=== PATIENT | male | born 2000 | race Caucasian/White ===

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

== ENCOUNTER 2019-02-24 12:31 | Emergency (ER) | payer MEDICAID, SELFPAY ==
[2019-02-24 12:33] VITALS: BP 102/52; PULSE 82; RESP 14; TEMP 36.9; O2SAT 98
--- NOTE | 2019-02-24 12:44 | DI.RAD_ITS ---
SYMPTOM/DIAGNOSIS: RT WRIST PAIN RIGHT WRIST: No fracture or dislocation is seen. IMPRESSION: Negative right wrist.
--- NOTE | 2019-02-24 13:04 | ED.GENADUL_ITS ---
Discharge Plan Disposition Patient Disposition: HOME Condition: Good Discharge Details Chief Complaint: Orthopedic Clinical Impression: Fracture of right wrist Primary Care Provider: Huber Phan ED Provider: Lenin Fong Home Meds and New Rx's Prescriptions: No Action ranitidine HCl 75 mg tablet 75 mg PO BID PRN (Reason: indigestion) Qty: 30 RF: 0 Discharge Instructions Instructions: Wrist Fracture in Adults (ED) Additional Instructions: You have a questionably small fracture in your right wrist. Please keep the brace on at all times. He will be contacted by the military source operations specialist for follow-up. Please use ice, Tylenol, and Motrin for control of the pain. If you notice any worsening of your symptoms, or any new symptoms such as vomiting, diarrhea, fever, chills, shortness of breath, chest pain, numbness, weakness, or fainting , please return immediately to the emergency department for reevaluation. Please follow up with your primary care provider as soon as possible for reassessment and reevaluation. As always, it was a pleasure participating in your medical care today. Stand Alone Forms: Work Release Referrals: Huber Phan DO [Primary Care Provider] - Medical Decision Making This is a 18-year-old male with no significant past medical history who presents with right wrist pain. He is right-hand dominant. Pain is just proximal to the palmar crease on the wrist. Worsened with extension, not worsened with pronation or supination. No numbness or tingling, normal sens ation, normal capillary refill. Signs and symptoms are concerning for mild tendinopathy. We will get an x-ray to rule out acute fracture. 1:51 PM X-ray results have returned, on initial assessment there was no evidence of fracture, however on reassessment there does appear to be an atypical lucency on the triquetrum. I did contact Dr. Mccrary again, and she does agree that this is slightly atypical. Patient is in the wrist splint. Will recommend close follow-up with the military source operations specialist. We discussed red flags which return, the importance of rest, ice and NSAIDs. I have extensively reviewed the treatment plan and discharge instructions with the patient. I have addressed all patient concerns at this time. The patient was made aware of what symptoms to monitor for that would warrant a return to the emergency department. Discussed the plan with the patient, they demonstrate verbal understanding and agreement with our assessment and plan at this time. HPI General Date/Time Provider Initiated Documentation: 02/24/19 12:35 . HPI Narrative: This is a 18-year-old male no significant past medical history who presents today for right wrist pain. He is right-hand dominant. Patient states that this morning when he woke up it mild to moderate pain on the palmar aspect of his wrist the central component just proximal to the proximal palmar crease. Pain worse with flexion of the wrist. He denies any associated numbness or tingling. He denies any recent trauma or injury. He does work at [employer]. No other complaints at this time. Related Data Home Medications Medication Instructions Recorded Confirmed ranitidine HCl 75 mg PO BID PRN #30 tab 12/14/18 02/24/19 Previous Rx's Medication Instructions Recorded ranitidine HCl 75 mg PO BID PRN #30 tab 12/14/18 Allergies Allergy/AdvReac Type Severity Reaction Status Date / Time No Known Allergies Allergy Unverified 02/24/19 12:43 General Stated Complaint: Orthopedic REY: 4 Review of Systems Review of Systems All systems reviewed & are unremarkable except as noted in HPI and below PFSH Social History Smoking/Tobacco Use Status: Never Alcohol Intake: never Drug use: Never Substance use type: does not use Do you feel safe at home: Yes Do you feel safe in your relationship?: Yes Exam Narrative Exam Narrative: 1.Const: Well-nourished, Well-developed, appearing stated age 2.Eyes: PERRL, no conjunctival injection, and symmetrical lids. 3.ENT: Atraumatic external nose and ears. Moist MM. Neck: Symmetric, trachea midline, No thyromegaly. 4.CVS: +S1/S2, No murmurs or gallops. Peripheral pulses 2+ and equal in all extremities. Brisk capillary refill in all extremities. 5.RESP: Unlabored respiratory effort. Clear to auscultation bilaterally. No wheezes rales or rhonchi 6.GI: Soft, Nontender/Nondistended, No hepatosplenomegaly. No guarding or rebound. 7.MSK: Normocephalic/Atraumatic, Extremities w/o deformity or ttp No cyanosis or clubbing, Normal movement of all extremities. Right hand: Symmetrically palpable radial and ulnar pulses. Capillary refill less than 2 seconds to all digits. Intact sensation to light touch of the radial, median and ulnar nerves demonstrated by testing in the dorsal web space of the thumb, the distal palmar aspect of the index finger, and the lateral surface of the fifth finger. 2 point discrimination intact to 5mm (up to 6mm can be normal in digits 3-5) of discrimination in the affected digit. Intact motor function of the radial, median and ulnar nerves demonstrated by strength of extension of the isolated distal joint of the index finger, hand malt house supervisor, and spreading of the 2nd through 5th digits. Intact recurrent median nerve as demonstrated by ability to move thumb fully through opposition, abduction and flexion. No snuffbox tenderness. Mild tenderness over the carpal tunnel, worse with Phalen's test. No significant pain with pronation or supination. 8.Skin: Warm, Dry. No rashes or lesions. 9.Neuro: sail finisher hand II-XII grossly intact. Sensation grossly intact, no focal neurologic deficits. 10.Psych: (AAO) x3. Appropriate mood and affect Course Vital Signs Temperature 36.9 C 02/24/19 12:33 Pulse 82 02/24/19 12:33 Respiratory Rate 14 02/24/19 12:33 Blood Pressure 102/52 L 02/24/19 12:33 Pulse Oximetry 98 02/24/19 12:33 Temperature 36.9 C 02/24/19 12:33 Temperature Source Skin 02/24/19 12:33 Pulse 82 02/24/19 12:33 Respiratory Rate 14 02/24/19 12:33 Respiratory Effort 02/24/19 12:44 Blood Pressure 102/52 L 02/24/19 12:33 Blood Pressure Position Sitting 02/24/19 12:33 Pulse Oximetry 98 02/24/19 12:33 Oxygen Delivery Method Room Air 02/24/19 12:33 Oxygen Flow Rate 0 02/24/19 12:33 Pain Level 7 02/24/19 12:33
[2019-02-24 14:01] VITALS: BP 102/52; PULSE 82; RESP 14; TEMP 36.9; O2SAT 98
== END 2019-02-24 14:03 | disposition home or self-care (01) ==
PROVIDERS: Emergency Provider Student in an Organized Health Care Education/Training Program; PCP Family Medicine
DX: S62.114A Nondisplaced fracture of triquetrum [cuneiform] bone, right wrist, initial encounter for closed fracture (principal); X58.XXXA Exposure to other specified factors, initial encounter
CPT/HCPCS: 25630; 73110; L3908

== ENCOUNTER 2019-03-05 07:08 | Emergency (ER) | payer MEDICAID, SELFPAY ==
[2019-03-05 07:13] VITALS: BP 114/56; PULSE 80; RESP 16; TEMP 36.3; O2SAT 99
--- NOTE | 2019-03-05 07:31 | ED.GENADUL_ITS ---
Discharge Plan Disposition Patient Disposition: HOME Condition: Fair Discharge Details Chief Complaint: Nk/Back Pain Clinical Impression: Back pain Primary Care Provider: Huber Phan ED Provider: Angela Mota Home Meds and New Rx's Prescriptions: New diazepam [Valium] 5 mg tablet 5 mg PO TID PRN (Reason: muscle spasm) Qty: 10 RF: 0 Continued ranitidine HCl 75 mg tablet 75 mg PO BID PRN (Reason: indigestion) Qty: 30 RF: 0 Discharge Instructions Instructions: Back Pain (ED) Additional Instructions: Your x-rays are reassuring today. Please encourage hydration. Encourage gentle stretching and frequent movement. Tylenol and ibuprofen as needed for discomfort. He may augment this with the Valium as prescribed if you continue to have spasms. Do not drive while taking the Valium. Please keep this medication in a safe place. Referral for physical therapy is attached. You may find that heat or ice is beneficial to help with your discomfort. You may also try topical options such as Salonpas or Lidoderm patches. Please follow-up with primary care in 1 week if not improving. If you develop sensation changes, weakness, fevers, increased pain or other new/worsening symptoms please seek care urgently once again. Stand Alone Forms: Physical Therapy Referral Referrals: Huber Phan DO [Primary Care Provider] - Medical Decision Making <Robert Flor MD - Last Filed: 03/05/19 07:37> 18 yo male comes in with mid lower thoracic and upper lumbar pain. States it started about 1-2 hours ago while sitting eating cereal. Denies falls, trauma, fevers, ivdu, weakness. He localizes the pain over the lower thoracic spine mid line and upper lumbar spine both midline and right paraspinous. HAs no deficits in sensation and no wekakness on exam. He also states the pain is so bad that it hurts to take a deep breath. I do not feel this is likely a spinal cord issues such as sea or cauda equina based on hx and physical exam so do not feel mri indicated. Unlikely fx/dislocation but will xray to eval for possible transverse process fx and also cxr given he states it hurts to take a deep breath. IS wells low and perc negateive so doubt PE. Will try muscle relaxers as well Differential Diagnosis muscle spasm, fracture, dislocation <AMARA Garcia - Last Filed: 03/05/19 08:34> Care transition to myself with imaging pending. X-rays were reviewed by radiologist: XR chest FINDINGS: Lungs: Unremarkable. No consolidation. Pleural space: Unremarkable. No pleural effusion. No pneumothorax. Heart/Mediastinum: Unremarkable. No cardiomegaly. Bones/joints: Unremarkable. IMPRESSION: No evidence for acute pulmonary disease. XR thoracic spine: FINDINGS: Vertebrae: Vertebral body heights are intact. Alignment is maintained. The pedicles appear intact. No acute fracture is identified. The disc spaces appear grossly unremarkable. Soft tissues: The soft tissues appear grossly unremarkable. IMPRESSION: No significant abnormality. XR lumbar spine: FINDINGS: Vertebrae: Vertebral body heights are intact. Alignment is maintained. The pedicles appear intact. No acute fracture is identified. The disc spaces appear grossly unremarkable. Soft tissues: The soft tissues appear grossly unremarkable. IMPRESSION: No significant abnormality. Reassessed the patient, discussed the findings. He continues to endorse some discomfort, particular with movement. However, the patient is resting comfortably and sleeping throughout much of my discussion with him. I did routinely wake him up. In further evaluation discussion with girlfriend, he did not actually sleep at all last night. They have been awake throughout the night. This may have been associated with his discomfort. We discussed that this may be secondary to positional movement, being sedentary for long period time, overworking it yesterday. Again, Dr. Flor did not note any neurologic deficits. X-ray does not reveal any bony pathology and without any trauma at his age, very low suspicion for fracture, nerve pathology with no inciting incident. Feel the patient is safe for discharge. The patient and his significant other agree. We will continue with the muscle relaxer as this has helped with his discomfort. Will refer to physical therapy. Encourage breathing. Advised Tylenol and ibuprofen as needed for discomfort. We discussed new/worsening symptoms when to seek care urgently once again. Advise follow-up with primary care in 1 week if not improving. All the questions and concerns were addressed in agreement this plan. HPI <Robert Flor MD - Last Filed: 03/05/19 07:37> General Mode of arrival: ambulatory . Date/Time Provider Initiated Documentation: 03/05/19 07:27 . Limitations to Documentation: no limitations . Information obtained by: patient . History of Present Illness 18 year old M presents to the emergency department with the chief complaint of back pain, described as severe, Quality is described as aching, Patient started experiencing this hour(s) (2) and it has been constant. No relieving factors improve symptom(s), Patient did receive the following treatments prior to arrival, none Related Data Home Medications Medication Instructions Recorded Confirmed ranitidine HCl 75 mg PO BID PRN #30 tab 12/14/18 03/05/19 diazepam [Valium] 5 mg PO TID PRN #10 tab 03/05/19 Previous Rx's Medication Instructions Recorded ranitidine HCl 75 mg PO BID PRN #30 tab 12/14/18 diazepam [Valium] 5 mg PO TID PRN #10 tab 03/05/19 Allergies Allergy/AdvReac Type Severity Reaction Status Date / Time No Known Allergies Allergy Unverified 03/05/19 07:15 General Stated Complaint: Nk/Back Pain REY: 4 Review of Systems <Robert Flor MD - Last Filed: 03/05/19 07:37> Review of Systems All systems reviewed & are unremarkable except as noted in HPI and below Constitutional Denies chills, Denies fever(s) and Denies weakness Cardiovascular Denies chest pain Gastrointestinal Denies abdominal pain, Denies nausea and Denies vomiting Neurologic Denies weakness Endocrine Denies heat intolerance PFSH <Robert Flor MD - Last Filed: 03/05/19 07:37> Social History Smoking/Tobacco Use Status: Never Alcohol Intake: never Drug use: Never Substance use type: does not use Do you feel safe at home: Yes Do you feel safe in your relationship?: Yes Exam <Robert Flor MD - Last Filed: 03/05/19 07:37> Const General: no acute distress Orientation: alert HENMT Head: normal to inspection Ears: external ears normal General nose exam: external nose normal Mouth: moist mucous membranes Eyes General: appearance normal, both eyes and all related structures Neck Neck: normal visual inspection Resp Effort & Inspection: normal respiratory effort and able to speak in complete sentences Cardio Rate: regular rate Back/Spine/Pelvis Back: no CVA tenderness Skin General skin exam: no rashes or lesions noted Neuro General: alert and oriented x3 Extrem General: normal to inspection Psych Mental Status: mental status grossly normal Course <Robert Flor MD - Last Filed: 03/05/19 07:37> Vital Signs Temperature 36.3 C L 03/05/19 07:13 Pulse 80 03/05/19 07:13 Respiratory Rate 16 03/05/19 07:13 Blood Pressure 114/56 L 03/05/19 07:13 Pulse Oximetry 99 03/05/19 07:13 Temperature 36.3 C L 03/05/19 07:13 Temperature Source Skin 03/05/19 07:13 Pulse 80 03/05/19 07:13 Respiratory Rate 16 03/05/19 07:13 Respiratory Effort Non-Labored 03/05/19 07:13 Blood Pressure 114/56 L 03/05/19 07:13 Pulse Oximetry 99 03/05/19 07:13 Oxygen Delivery Method Room Air 03/05/19 07:13 Oxygen Flow Rate 0 03/05/19 07:13 Pain Level 10 03/05/19 07:13 Sign Out <Robert Flor MD - Last Filed: 03/05/19 07:37> Sign Out Data: Sign Out Comment: follow up on imaging and response to medications Last updated by Robert Flor MD at 03/05/19 07:56
[2019-03-05] MEDS: Ibuprofen 600 MG TAB PO (07:40)
[2019-03-05] MEDS: diazePAM 5 MG TAB PO (07:40)
--- NOTE | 2019-03-05 07:56 | DI.RAD_ITS ---
SYMPTOM/DIAGNOSIS: HURTS TO TAKE DEEP BREATH, PAIN, S/P CRACKING HIS BACK THORACIC SPINE: Three views were obtained. No fracture is seen. LUMBOSACRAL SPINE: Two views were obtained. No fracture is seen. Intervertebral disc spaces are well maintained. PA AND LATERAL CHEST: The heart is normal in size. The lungs are clear. The mediastinal structures and pleura appear intact. CONCLUSION: Normal chest.
--- NOTE | 2019-03-05 08:19 | DI.VRAD_ITS ---
EXAM: XR Thoracic Spine, 3 Views EXAM DATE/TIME: 03/05/2019 7:32 AM CLINICAL HISTORY: 18 years old, male; Pain in thoracic spine; Patient HX: Pain S/P cracking his back TECHNIQUE: Imaging protocol: XR of the thoracic spine, 3 views. COMPARISON: No relevant prior studies available. FINDINGS: Vertebrae: Vertebral body heights are intact. Alignment is maintained. The pedicles appear intact. No acute fracture is identified. The disc spaces appear grossly unremarkable. Soft tissues: The soft tissues appear grossly unremarkable. IMPRESSION: No significant abnormality. Dictated and Authenticated by: Robert Osman MD. Ordering:MADAI Jones MD
--- NOTE | 2019-03-05 08:19 | DI.VRAD_ITS ---
EXAM: XR Chest, 2 Views EXAM DATE/TIME: 03/05/2019 7:32 AM CLINICAL HISTORY: 18 years old, male; Chest pain; Patient HX: Hurts to take deep breaths TECHNIQUE: Imaging protocol: XR of the chest Views: 2 views. COMPARISON: No relevant prior studies available. FINDINGS: Lungs: Unremarkable. No consolidation. Pleural space: Unremarkable. No pleural effusion. No pneumothorax. Heart/Mediastinum: Unremarkable. No cardiomegaly. Bones/joints: Unremarkable. IMPRESSION: No evidence for acute pulmonary disease. Dictated and Authenticated by: Robert Osman MD. Ordering:MADAI Jones MD
--- NOTE | 2019-03-05 08:20 | DI.VRAD_ITS ---
EXAM: XR Lumbosacral Spine, 2 or 3 Views EXAM DATE/TIME: 03/05/2019 7:46 AM CLINICAL HISTORY: 18 years old, male; Low back pain; Patient HX: Pain S/P cracking his back TECHNIQUE: Imaging protocol: XR of the lumbosacral spine, 2 or 3 views. COMPARISON: No relevant prior studies available. FINDINGS: Vertebrae: Vertebral body heights are intact. Alignment is maintained. The pedicles appear intact. No acute fracture is identified. The disc spaces appear grossly unremarkable. Soft tissues: The soft tissues appear grossly unremarkable. IMPRESSION: No significant abnormality. Dictated and Authenticated by: Robert Osman MD. Ordering:MADAI Jones MD
== END 2019-03-05 09:00 | disposition home or self-care (01) ==
PROVIDERS: Emergency Provider Physician Assistant; PCP Family Medicine
DX: M54.6 Pain in thoracic spine (principal); M54.5 Low back pain
CPT/HCPCS: 99284; 71046; 72072; 72100

== ENCOUNTER 2019-05-15 17:17 | Emergency (ER) | payer MEDICAID, SELFPAY ==
[2019-05-15 17:19] VITALS: BP 125/75; PULSE 96; RESP 16; TEMP 36.7; O2SAT 99
--- NOTE | 2019-05-15 18:48 | NUR.NOTE ---
Nursing Note: Patient instructed on urine collection. States he needs some water to drink before he can pee. Glass of water provided.
--- NOTE | 2019-05-15 18:49 | W.ED.GENAD ---
Discharge Plan Disposition Patient Disposition: HOME Discharge Details Chief Complaint: RashLesion Clinical Impression: Genital lesion, male, Inguinal lymphadenopathy Primary Care Provider: Huber Phan ED Provider: Cuauhtemoc Fisher Home Meds and New Rx's Prescriptions: New acyclovir 400 mg tablet 400 mg PO QID 10 Days Qty: 40 RF: 0 Discharge Instructions Instructions: Genital Herpes Simplex (ED) Additional Instructions: Your symptoms are concerning for genital herpes. It is very important that you refrain from sexual intercourse while symptoms persist. Symptoms will usually resolve over the next 2 to 3 weeks. You may experience fever and/or worsening genital lesions. Keep area clean. We have sent out a panel of STD testing which we will contact you with results. I also started you on a medication, acyclovir, for which she should take over the next 10 days. This will help reduce the severity of your symptoms. Referrals: Huber Phan DO [Primary Care Provider] - 5 days Medical Decision Making This is a nontoxic-appearing 18-year-old male presenting to the emergency department with symptoms concerning for genital herpes. He has a shallow ulceration along the tip of the glans along with associated tender bilateral inguinal lymphadenopathy. Direct swab sampling sent along with HSV 1 and 2 PCR, syphilis, HIV and GC chlamydia. The patient is sexually active and notified his girlfriend who was also present in the emergency department that his symptoms are concerning for herpes. Plan is to initiate acyclovir and follow-up with his blood/culture results. HPI General Date/Time Provider Initiated Documentation: 05/15/19 17:27. HPI Narrative: Patient is a 18-year-old sexually active male who presents to the emergency department with a small round painful lesion located at the tip of his penis. He states that his symptoms started today. He describes the lesion as tender. It has the appearance of an ulcer. He denies any fevers or chills. He idenies previous similar symptoms in the past. He is sexually active with his girlfriend engaging in unprotected intercourse. He denies any urethral discharge. No scrotal tenderness. No abdominal pain. Related Data Home Medications Medication Instructions Recorded Confirmed acyclovir 400 mg PO QID 10 Days #40 tab 05/15/19 Previous Rx's Medication Instructions Recorded acyclovir 400 mg PO QID 10 Days #40 tab 05/15/19 Allergies Allergy/AdvReac Type Severity Reaction Status Date / Time No Known Allergies Allergy Unverified 05/15/19 17:24 General Stated Complaint: RashLesion REY: 4 Review of Systems Constitutional Constitutional: Denies chills, Denies fatigue, Denies fever(s), Denies malaise and Denies night sweats ENT Ears, Nose, Mouth, and Throat: Denies odynophagia Gastrointestinal Gastrointestinal: Denies abdominal pain, Denies change in stool character, Denies nausea and Denies odynophagia Genitourinary Genitourinary: Denies hematuria, Denies difficulty urinating, Reports genital lesions, Reports genital pain, Denies dysuria, Denies flank pain, Denies nocturia, Denies painful ejaculations, Denies penile discharge, Denies scrotal swelling, Denies testicular mass, Denies testicular pain, Denies urinary frequency and Denies urinary urgency Musculoskeletal Musculoskeletal: Denies myalgias, Denies arthralgias and Denies joint swelling Integumentary/Breasts Skin/Breast: Denies rash Endocrine Endocrine: Denies fatigue [facility] Social History Smoking/Tobacco Use Status: Never Alcohol Intake: never Drug use: Never Substance use type: does not use Do you feel safe at home: Yes Exam Const General: cooperative, healthy appearing and comfortable Nutritional Appearance: average body habitus Orientation: alert, awake and oriented x3 Resp Effort & Inspection: normal respiratory effort and able to speak in complete sentences GI Inspection: normal to inspection Palpation: soft Penis: ulceration Other: Shallow painful ulceration located along the tip of the glans just lateral to the urethra. Surrounding erythema is with granulation tissue at its base. No discharge. Bilateral tender inguinal lymphadenopathy noted. No scrotal tenderness. No other areas of lesions or rashes. No urethral discharge Course Vital Signs Vital signs: Vital Signs Temperature 36.7 C 05/15/19 17:19 Pulse 96 H 05/15/19 17:19 Respiratory Rate 16 05/15/19 17:19 Blood Pressure 125/75 05/15/19 17:19 Pulse Oximetry 99 05/15/19 17:19 Temperature 36.7 C 05/15/19 17:19 Temperature Source Skin 05/15/19 17:19 Pulse 96 H 05/15/19 17:19 Respiratory Rate 16 05/15/19 17:19 Respiratory Effort Non-Labored 05/15/19 17:23 Blood Pressure 125/75 05/15/19 17:19 Blood Pressure Position Sitting 05/15/19 17:19 Pulse Oximetry 99 05/15/19 17:19 Oxygen Delivery Method Room Air 05/15/19 17:19 Oxygen Flow Rate 0 05/15/19 17:19 Pain Level 10 05/15/19 17:19 Lab/Test Results Lab/Test Results: 05/15/19 17:44 Penile Skin Culture - Pending
--- NOTE | 2019-05-15 19:02 | NUR.NOTE ---
Nursing Note: 1900: In to collect urine specimen. Pt had filled urine cup after being told to fill to below label only. Patient informed this was to much urine and would need to recollect in one hour. Provider informed. He will now do swab on pt.
--- NOTE | 2019-05-15 19:11 | NUR.NOTE ---
Nursing Note: [id number] Provider in to collect swab. Sent to lab.
[2019-05-17 11:24] LABS: HIV-1/2 Ag & Ab Screen Negative (Negative)
[2019-05-17 11:52] LABS: Syphilis Serology (RPR) Negative (Negative)
[2019-05-17 12:11] LABS: HSV 1 DNA Result Negative (Negative)
[2019-05-17 13:59] LABS: Chlamydia Result Negative (Negative)
[2019-05-17 14:56] LABS: GC Result Negative (Negative)
[2019-05-17 14:58] LABS: HSV 2 DNA Result Positive (Negative)
[2019-05-17 19:12] LABS: HSV 1 PCR, Blood Negative (Negative); HSV 2 PCR, Blood Negative (Negative)
== END 2019-05-15 19:39 | disposition home or self-care (01) ==
PROVIDERS: Emergency Provider Physician Assistant; PCP Family Medicine
DX: N50.9 Disorder of male genital organs, unspecified (principal); L04.9 Acute lymphadenitis, unspecified
CPT/HCPCS: 36415; 87389; 87491; 87529; 87591; 99283; 86592; 87070

== ENCOUNTER 2019-05-16 20:01 | Emergency (ER) | payer MEDICAID, SELFPAY ==
[2019-05-16 20:11] VITALS: BP 108/77; PULSE 96; RESP 16; TEMP 36.1; O2SAT 100
--- NOTE | 2019-05-16 20:31 | NUR.NOTE ---
Nursing Note: Patient staff attorney came back to room.
--- NOTE | 2019-05-16 20:34 | DI.RAD_ITS ---
EXAM: XR ANKLE LT COMPLETE INDICATION: trauma. COMPARISON: XR FOOT LT COMPLETE from 05/16/2019 TECHNIQUE: 2D digital imaging was performed. FINDINGS: No fracture is seen in the ankle or foot. No ankle mortise widening is seen. No talar dome defec t is seen. IMPRESSION: Negative left ankle and left foot.
--- NOTE | 2019-05-16 20:35 | NUR.NOTE ---
Nursing Note: Specialist [employer] was asked to leave room by ADEEL Miller.
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
[2019-05-16] MEDS: Ibuprofen 600 MG TAB PO (20:45)
[2019-05-16] MEDS: Acetaminophen 500 MG TAB 1000 MG PO (20:45)
--- NOTE | 2019-05-16 20:45 | NUR.NOTE ---
Nursing Note: To radiology per wheelchair.
--- NOTE | 2019-05-16 20:59 | NUR.NOTE ---
Nursing Note: Patient returned from radiology per wheelchair,
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
== END 2019-05-16 21:30 | disposition home or self-care (01) ==
PROVIDERS: Emergency Provider Physician Assistant; PCP Family Medicine
DX: S90.32XA Contusion of left foot, initial encounter (principal); S90.02XA Contusion of left ankle, initial encounter; V03.10XA Pedestrian on foot injured in collision with car, pick-up truck or van in traffic accident, initial encounter
CPT/HCPCS: 29515; 99284; 73610; 73630; 99282; L4350

== ENCOUNTER 2019-05-27 15:24 | Emergency (ER) | payer MEDICAID, SELFPAY ==
[2019-05-27 15:28] VITALS: BP 130/87; PULSE 88; RESP 16; TEMP 37; O2SAT 98
--- NOTE | 2019-05-27 15:32 | W.ED.GENAD ---
Discharge Plan Disposition Patient Disposition: HOME Condition: Stable Discharge Details Chief Complaint: Urinary Clinical Impression: Exposure to STD Primary Care Provider: Huber Phan ED Provider: Leslie Orozco Discharge Instructions Instructions: Sexually Transmitted Diseases (ED) Additional Instructions: Be sure to refrain from intercourse while you are partner still has symptoms of infection. You can follow-up with your primary care doctor or [facility] for repeat STD testing if desired. Return to the emergency department if you develop any worsening or new concerning symptoms. 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 Patient was seen here 12 days ago for painful penile ulcers and had STD work-up at that time. He had a new sexual partner with unprotected sexual intercourse around that time. He was treated presumptively with acyclovir and had herpes testing at that time. He ultimately tested positive for herpes simplex II and tested negative for chlamydia and gonorrhea at that time. His girlfriend was in the ED at the same time and had no or urinary symptoms at that time but was tested preemptively. Her STD work-up was positive for chlamydia but negative for gonorrhea and herpes. She was notified of this positive result over the phone and was advised that any sexual partners be treated. This phone call was 10 days ago and he presents today stating I am here to be cured. He denies any fever, abdominal pain, urinary symptoms, penile discharge or lesions. He states he finished his acyclovir recently. As patient was tested for chlamydia and negative and has no symptoms, do not see indication for treatment of chlamydia at this time and patient is agreeable. He is advised to follow-up with a primary care doctor or [facility] for further evaluation or repeat STD testing if indicated. He is advised to return here with any concerns. Medical Records Medical records reviewed: Yes I reviewed the patient's medical records. HPI General Mode of arrival: ambulatory. Date/Time Provider Initiated Documentation: 05/27/19 15:32. Limitations to Documentation: no limitations. Information obtained by: patient. HPI Narrative: Patient is a 18-year-old male who was recently diagnosed with herpes simplex to and treated with acyclovir which he finished yesterday presents for treatment for chlamydia as his partner recently tested positive. Patient denies any fever, abdominal pain, urinary symptoms or penile discharge. He states he is feeling fine but was told by his girlfriend to come here for treatment as she tested positive recently for chlamydia. Patient denies any other new sexual exposures. Related Data Allergies Allergy/AdvReac Type Severity Reaction Status Date / Time No Known Allergies Allergy Unverified 05/27/19 15:32 General Stated Complaint: Urinary REY: 5 Review of Systems All systems reviewed & are unremarkable except as noted in HPI and below Constitutional Constitutional: Reports as per HPI, Denies chills and Denies fever(s) Eyes Eyes: Denies blurry vision ENT Ears, Nose, Mouth, and Throat: Denies dizziness, Denies sore throat and Denies throat swelling Cardiovascular Cardiovascular: Denies chest pain and Denies dyspnea Respiratory Respiratory: Denies cough and Denies dyspnea Gastrointestinal Gastrointestinal: Denies abdominal pain, Denies diarrhea and Denies vomiting Genitourinary Genitourinary: Denies hematuria and Denies dysuria Musculoskeletal Musculoskeletal: Denies back pain and Denies numbness Integumentary/Breasts Skin/Breast: Denies lesions and Denies rash Neurologic Neurologic: Denies dizziness, Denies focal weakness and Denies numbness Allergic/Immunologic Allergic/Immunologic: Denies throat swelling [facility] Medical History No significant past medical history (Acute) Surgical History History of ear surgery (Acute) Social History Smoking/Tobacco Use Status: Never Alcohol Intake: never Drug use: Never Substance use type: does not use Do you feel safe at home: Yes Do you feel safe in your relationship?: Yes Exam Const General: cooperative, healthy appearing and no acute distress HENMT Head: normal to inspection Face and sinus: normal facial exam Eyes General: appearance normal, both eyes and all related structures EOM: EOM intact bilaterally Neck Neck: normal visual inspection and No submandibular swelling Lymphatic: no lymphadenopathy noted Chest Chest: normal inspection of the chest and no tenderness Resp Effort & Inspection: normal respiratory effort and able to speak in complete sentences Auscultation: clear to auscultation bilaterally Cardio Rate: regular rate Rhythm: regular rhythm GI Inspection: normal to inspection Palpation: soft, not firm, not rigid and nontender Auscultation: normal bowel sounds Skin General skin exam: no rashes or lesions noted Neuro General: alert, awake and oriented x3 Cognition: normal cognition Speech: speech normal Motor: muscle tone normal throughout Sensory Exam: no sensory deficits noted Extrem General: normal to inspection, full ROM, normal capillary refill, no calf tenderness bilaterally and no edema Psych Appearance: grossly normal Mental Status: mental status grossly normal Speech and Movement: speech and movement normal Affect: normal affect Course Vital Signs Vital signs: Vital Signs Temperature 98.6 F 05/27/19 15:28 Pulse 88 05/27/19 15:28 Respiratory Rate 16 05/27/19 15:28 Blood Pressure 130/87 05/27/19 15:28 Pulse Oximetry 98 05/27/19 15:28 Temperature 98.6 F 05/27/19 15:28 Temperature Source Temporal Artery Scan 05/27/19 15:28 Pulse 88 05/27/19 15:28 Respiratory Rate 16 05/27/19 15:28 Respiratory Effort Non-Labored 05/27/19 15:31 Blood Pressure 130/87 05/27/19 15:28 Blood Pressure Position Sitting 05/27/19 15:28 Pulse Oximetry 98 05/27/19 15:28 Oxygen Delivery Method Room Air 05/27/19 15:28 Oxygen Flow Rate 0 05/27/19 15:28
== END 2019-05-27 16:20 | disposition home or self-care (01) ==
PROVIDERS: Emergency Provider Physician Assistant; PCP Family Medicine
DX: Z20.2 Contact with and (suspected) exposure to infections with a predominantly sexual mode of transmission (principal)
CPT/HCPCS: 99282

== ENCOUNTER 2019-08-07 12:29 | Emergency (ER) | payer MEDICAID, SELFPAY ==
[2019-08-07 12:35] VITALS: BP 110/72; PULSE 91; TEMP 36.5; O2SAT 96
--- NOTE | 2019-08-07 13:47 | ED.GENADUL_ITS ---
Discharge Plan Disposition Patient Disposition: HOME Condition: Stable Discharge Details Chief Complaint: RashLesion Clinical Impression: Cellulitis, Abscess Primary Care Provider: Unknown,Unknown ED Provider: Emilia Torres Home Meds and New Rx's Prescriptions: New cephalexin [Keflex] 500 mg capsule 500 mg PO QID Qty: 39 RF: 0 Continued valacyclovir 500 mg Tablet 500 mg PO DAILY RF: 0 Discharge Instructions Instructions: Cephalexin (By mouth), Cellulitis (ED), Abscess (ED) Additional Instructions: Please return immediately to the emergency department if you develop any new or worsening symptoms, if your condition does not improve as expected, or if you become otherwise concerned. It is extremely important that you call soon as possible to make an appointment to be seen in follow-up for this visit by your primary care doctor. Discharge Data Discharge Date/Time-TO BE ENTERED AT DEPARTURE: 08/07/19 14:18 Medical Decision Making Mannie Mary is a 19 y/o man without reported h/o major medical problems who presented to the emergency department with left buttock abscess for the past 2 weeks, worse in the past 2 days. Pt is very well and non-toxic appearing on exam with 2x3 cm area of erythema/induration with central ulceration c/w cellulitis, draining abscess. POCUS shows tissue edema without fluid collection. Plan to treat with keflex, no I&D indicated at this time. Exam/hx not c/w systemic infection, fistula, necrotizing fasciitis, atypical infection, other acute emergent life threatening process. I had a lengthy discussion with Patient regarding return to emergency department precautions, home care, and importance of outpatient follow-up. Pt verbalizes understanding of the plan and is amenable. Patient discharged to home with clear plan for outpatient follow-up. All questions were answered. Disposition decision was made weighing the risks and benefits of hospitalization versus outpatient treatment, the risk for further decompensation, and the patient's wishes. Medical Records Medical records reviewed: Yes I reviewed the patient's medical records. HPI General Mode of arrival: ambulatory . Date/Time Provider Initiated Documentation: 08/07/19 12:46 . Limitations to Documentation: no limitations . Information obtained by: patient, RN notes reviewed and old records reviewed . HPI Narrative: Mannie Mary is a 19 y/o man without reported h/o medical problems presenting to the emergency department with abscess. Pt reports that he has had a pimple on his left buttock for past 2 weeks. He reports that he has squeezed at home with return of discharge. Pt reports that area seems to be increasing in size since yesterday. He reports that there is continued small amount of daily discharge from area. He reports that he does not have a h/o abscesses. He denies any other pain or symptoms: no fever, SOB, cough, vomiting, diarrhea, rash. Feels otherwise very well and in his usual state of health. He denies trauma. Related Data Home Medications Medication Instructions Recorded Confirmed cephalexin [Keflex] 500 mg PO QID #39 cap 08/07/19 valacyclovir 500 mg PO DAILY 08/07/19 08/07/19 Previous Rx's Medication Instructions Recorded cephalexin [Keflex] 500 mg PO QID #39 cap 08/07/19 Allergies Allergy/AdvReac Type Severity Reaction Status Date / Time No Known Allergies Allergy Unverified 08/07/19 12:38 General Stated Complaint: RashLesion REY: 3 Review of Systems Narrative: Constitutional: denies fevers Eyes: denies eye pain ENT: denies ear pain, dental pain, sore throat Cardiovascular: denies chest pain Respiratory: denies SOB, cough GI: denies abdominal pain, vomiting, diarrhea : denies flank pain MSK: denies back pain, neck pain, arthralgias, myalgias Skin: denies rash, reports pimple/abscess to left buttock Neuro: denies headaches, numbness, weakness PFSH Social History Smoking/Tobacco Use Status: Never Alcohol Intake: never Drug use: Never Substance use type: does not use Do you feel safe at home: Yes Do you feel safe in your relationship?: Yes Exam Narrative Exam Narrative: Constitutional: well and [id number], pleasant, conversing normally HENT: head atraumatic/normocephalic/normal inspection, mucous membranes moist Eyes: conjunctiva normal, sclera normal, pupils 3mm b/l Neck: no stridor, normal ROM, trachea midline Resp: normal work of breathing Cardio: normal rate, normal rhythm Back: normal inspection, no rash Skin: warm, dry, normal color, left lateral/posterior buttock with 2x3cm area of erythema and induration mildly TTP with central ulceration with scant purulent drainage, no fluctuance, no crepitus, no other rash Neuro: alert, not altered, grossly non-focal, normal tone Ext: no edema Psych: normal mood, normal affect, normal behavior Course Vital Signs Vital signs: Vital Signs Temperature 36.5 C 08/07/19 12:35 Pulse 91 H 08/07/19 12:35 Blood Pressure 110/72 08/07/19 12:35 Pulse Oximetry 96 08/07/19 12:35 Temperature 36.5 C 08/07/19 12:35 Pulse 91 H 08/07/19 12:35 Blood Pressure 110/72 08/07/19 12:35 Blood Pressure Position Sitting 08/07/19 12:35 Pulse Oximetry 96 08/07/19 12:35 Oxygen Delivery Method Room Air 08/07/19 12:35 Oxygen Flow Rate 0 08/07/19 12:35 Pain Level 6 08/07/19 12:35
[2019-08-07] MEDS: Cephalexin 500 MG CAP PO (14:16)
== END 2019-08-07 14:18 | disposition home or self-care (01) ==
PROVIDERS: Emergency Provider Student in an Organized Health Care Education/Training Program
DX: L03.317 Cellulitis of buttock (principal); L02.31 Cutaneous abscess of buttock
CPT/HCPCS: 99283

== ENCOUNTER 2025-06-03 13:31 | Observation (INO) | payer SELFPAY ==
[2025-06-03] VITALS (7 sets, daily range): BP systolic 107–131; BP diastolic 60–76; PULSE 66–78; RESP 12–18; TEMP 35.9–37; O2SAT 96–100
--- NOTE | 2025-06-03 13:45 | DI.CT_ITS ---
Exam(s) CT ABDOMEN PELVIS W EXAM: CT ABDOMEN PELVIS W CLINICAL HISTORY: RLQ abd pain. TECHNIQUE: Imaging Protocol: Axial computed tomography images with coronal and sagittal reformatted images were created and reviewed CONTRAST MATERIAL: Intravenous: Omnipaque-350 75cc Oral: None COMPARISON: No exams were available for comparison FINDINGS: VISUALIZED LUNG BASES: No nodules nor pleural effusions evident. ABDOMEN: There is no ascites. LIVER: There are no focal hepatic lesions evident. No dilated intrahepatic ducts. GALLBLADDER/BILIARY: No obvious gallbladder pathology. CBD is not dilated. PANCREAS: No evidence of pancreatic mass nor dilatation of the pancreatic duct. SPLEEN: Spleen is not enlarged. No obvious intrasplenic lesions. Splenic and portal veins are patent. ADRENALS: There are no significant adrenal masses. KIDNEYS:No cysts evident. No solid renal masses. No calculi nor hydronephrosis.. ABDOMINAL AORTA: Abdominal aorta is not enlarged. LYMPH NODES:There is no retroperitoneal nor paraaortic adenopathy. ABDOMINAL WALL: No evidence of significant anterior abdominal wall nor inguinal hernia. GI: There are some fluid filled small bowel loops in the pelvis which exhibit upper normal diameters. No obvious struck in, free air, nor abscess PELVIS: GI: The appendix is difficult to identify is a distinct structure. There are no obvious secondary signs of acute appendicitis.No evidence of sigmoid diverticulitis. LYMPH NODES: There is no intrapelvic nor inguinal adenopathy. REPRODUCTIVE: Prostate size normal. Seminal vesicles unremarkable. URINARY BLADDER: No calculi nor obvious masses evident OSSEOUS: No fractures and no significant osseous lesions. Sacroiliac joints appear unremarkable. IMPRESSION: 1. The appendix is difficult to identify as a distinct separate structure. There is no obvious acute appendicitis. There are fluid-filled upper normal diameter small bowel loops in the pelvis. No evidence of obvious acute appendicitis. 2. 3. 4. RADIATION DOSE DELIVERED: 269.33mGy.cm Total DLP DATA REPOSITORY: All CT scans at this facility are submitted to the National Radiology Data Registry (NRDR) Dose Index Registry (DIR) with the [employer] (A[employer]). RADIATION OPTIMIZATION: All CT scans at this facility use at least one of these dose optimization techniques: automated exposure control; mA and/or kV adjustment per patient size (includes targeted exams where dose is matched to clinical indication); or iterative reconstruction.
--- NOTE | 2025-06-03 14:00 | ED.GENADUL_ITS ---
Discharge Plan Disposition Patient Disposition: Admit to [facility] Condition: Stable Discharge Details Clinical Impression: Abdominal pain of unknown etiology Primary Care Provider: Unknown,Unknown ED Provider: Yuliya Mei Home Meds and New Rx's Prescriptions: No Action valacyclovir 500 mg Tablet 500 mg PO DAILY cephalexin [Keflex] 500 mg capsule 500 mg PO QID Qty: 39 0RF HPI General Mode of arrival: ambulatory . Date/Time Provider Initiated Documentation: 06/03/25 13:47 . Limitations to Documentation: no limitations . Information obtained by: patient, family and old records reviewed . HPI Narrative: This is a 24-year-old male patient, previously healthy presenting for evaluation of right lower quadrant abdominal pain with nausea and vomiting. Yesterday the patient had nausea and several episodes of nonbloody emesis, today started to have a gradually worsening pain in his right lower quadrant that radiates around his side to his back. He states that he has not had fevers or chills, has some ongoing nausea, took some Motrin at home without improvement in his pain. The pain feels better when he grows up in a ball. He has not had any dysuria or hematuria, last stool was yesterday and he does feel slightly constipated. He endorses occasional blood on the toilet tissue when he wipes and is concerned for a hemorrhoid. Related Data Home Medications ?Medication ?Instructions ?Recorded ?Confirmed cephalexin 500 mg capsule (Keflex) 500 mg PO QID #39 c aps 08/07/19 06/03/25 valacyclovir 500 mg tablet 500 mg PO DAILY 08/07/19 Previous Rx's ?Medication ?Instructions ?Recorded cephalexin 500 mg capsule (Keflex) 500 mg PO QID #39 c aps 08/07/19 Allergies Allergy/AdvReac Type Severity Reaction Status Date / Time No Known Allergies Allergy Unverified 06/03/25 13:42 General Stated Complaint: Abd Prob REY: 3 Exam Narrative Exam Narrative: Gen: Awake and alert, in no apparent distress HEENT: Non-icteric sclera Neck: Supple Lungs: No apparent respiratory distress, normal respiratory effort. Lung sounds clear and equal bilaterally without wheezes, rhonchi, rales CV: Appears well perfused, heart with regular rate and rhythm, strong distal pulses Abdomen: Non-distended, soft, tender to palpation in the right lower quadrant without rigidity, but does have some rebound tenderness and guarding. Rovsing sign negative, no overlying skin changes Rectal: Rectal examination supervised by LENNOX Murphy, revealing a small nonthrombosed external hemorrhoid at the 3 o'clock position, no other fissures or external abnormalities visualized MSK: Moves 4 extremities without apparent limitation in ROM. No peripheral e robert Skin: Visualized skin without rashes, cyanosis. Neuro: Normal Gait, no obvious focal deficits or facial asymmetry. Speaks in full, clear sentences. Psych: Appropriate for situation. Course Vital Signs Vital signs: Vital Signs Temperature 37.0 C 06/03/25 13:36 Pulse 78 06/03/25 13:36 Respiratory Rate 16 06/03/25 13:36 Blood Pressure 107/67 06/03/25 13:36 Pulse Oximetry 96 06/03/25 13:36 Temperature 37.0 C 06/03/25 13:36 Temperature Source Oral 06/03/25 13:36 Pulse 78 06/03/25 13:36 Respiratory Rate 16 06/03/25 13:36 Blood Pressure 107/67 06/03/25 13:36 Pulse Oximetry 96 06/03/25 13:36 Oxygen Delivery Method Room Air 06/03/25 13:36 Oxygen Flow Rate 0 06/03/25 13:36 Pain Level 10 06/03/25 13:36 Medical Decision Making This is a 24-year-old male patient presenting for evaluation of right lower quadrant abdominal pain with nausea and vomiting. My differential includes, but is not limited to, appendicitis, gastritis/PUD, gastroenteritis, pancreatitis, cholecystitis and gallbladder pathology, hepatitis, diverticulitis, small bowel obstruction. Considered urinary pathology including UTI, nephrolithiasis. Considered mesenteric ischemia, aortic pathology, though this is less concerning based on the patient's history and physical exam. The external hemorrhoid is nonthrombosed and is unlikely to be contributing to the patient's nausea and abdominal pain today. We will obtain labs to include CBC, CMP, magnesium, lipase, urinalysis, will obtain a CT abdomen pelvis with contrast. I will provide patient with a dose of Zofran, Dilaudid, and a liter of IV fluids and keep him n.p.o. until workup is complete. - I independently interpreted the laboratory studies, which show no significant leukocytosis, anemia, or thrombocytopenia. The chemistry panel is without evidence of electrolyte abnormality, kidney dysfunction, or liver injury. Lipase is low, urinalysis without evidence of infection or hematuria. CT scan reviewed by myself and discussed with the radiologist, we are unable to definitively visualize the appendix but he has no evidence of inflammation, free fluid or other secondary signs of appendicitis. However, the patient remains with significant right lower quadrant tenderness and nausea, I reach out to the surgeon to discuss the possibility of early appendicitis, he does not feel that this patient warrants any further intervention and should be discharged on oral pain management with outpatient follow-up in the next 1 to 2 days. Unfortunately, the patient does not have a primary care provider, and does not have adequate relief of his abdominal discomfort despite multiple doses of both p.o. and intravenous pain medications. For this reason I reached out to the hospitalist, as I feel this patient warrants admission for serial abdominal examinations, ongoing pain management, and potential repeat imaging. The hospitalist will provide antibiosis for potential intra-abdominal infe ctions, and is graciously accepted this patient for admission to their service. The patient remained hemodynamically appropriate while under my care and was transferred to their team without incident. Yuliya Mei MD [facility] All Active Problems (Updated 06/03/25 @ 19:25 by Yuliya Mei MD) Abdominal pain of unknown etiology (Acute) Abdominal pain (Acute) Abscess (Acute) Cellulitis (Acute) Medical History (Updated 06/03/25 @ 19:25 by Yuliya Mei MD) No significant past medical history Surgical History History of ear surgery Social History Smoking/Tobacco Use Status: Never Smoking risk assessment performed?: Yes Alcohol Intake: never Drug use: Never Substance use type: marijuana Do you feel safe at home: Yes Do you feel safe in your relationship?: Yes
[2025-06-03] MEDS: Omnipaque 350 MG/ML 100 ML BTL IJ (14:09)
[2025-06-03] MEDS: Normal Saline - Diluent 50 ML VIAL IJ (14:11)
[2025-06-03] MEDS: Normal Saline Flush 10 ML SYR IVP ×3 (14:12→22:39)
[2025-06-03] MEDS: Ondansetron 4 MG/2 ML VIAL IVP ×3 (14:19→20:05)
[2025-06-03 14:20] LABS: Abs Immature Grans 0.02 10^3/uL (0.0-0.06); HCT 39.8 % (40.0-50.0); HGB 13.2 g/dL (13.5-17.5); Immature Grans % 0.3 %; MCH 28.8 pg (27.0-33.0); MCHC 33.2 % (32.0-36.0); MCV 87 fL (80-95); MPV 9.7 fL (8.0-11.0); Platelet Count 298 10^3/uL (130-400); RBC 4.58 10^6/uL (4.36-5.78); RDW 12.5 % (11.8-14.1); RDW-SD 39.8 fL; WBC 7.73 10^3/uL (4.4-10.8)
[2025-06-03] MEDS: HYDROmorphone 2 MG/ML SYR 0.5 MG IVP (14:20)
[2025-06-03] MEDS: Lactated Ringers 1,000 ML 1000 ML IV (14:25)
[2025-06-03 14:38] LABS: Lipase 29 U/L (<53)
[2025-06-03 14:39] LABS: Magnesium 2.0 mg/dL (1.6-2.6)
[2025-06-03 14:40] LABS: ALT 13 U/L (10-49); AST 20 U/L (<34); Albumin 4.8 g/dL (3.2-5.0); Alkaline Phosphatase 83 U/L (46-116); Anion Gap 9.8 mmol/L (3-11); BUN 16 mg/dL (9-23); Bilirubin, Total 0.60 mg/dL (0.2-1.2); CO2 24.2 mmol/L (20.0-31.0); Calcium 9.6 mg/dL (8.3-10.6); Chloride 108 mmol/L (98-107); Glucose 79 mg/dL (74-106); Potassium 4.1 mmol/L (3.5-5.1); Sodium 142 mmol/L (136-145); Total Protein 7.7 g/dL (5.7-8.2)
[2025-06-03] MEDS: HYDROmorphone 2 MG/ML SYR 1 MG IVP ×2 (14:54→18:57)
[2025-06-03] MEDS: ACETAMINOPHEN 1,000 MG/100 ML BAG 400 MG IVPB (15:51)
[2025-06-03] MEDS: Ketorolac 15 MG/ML VIAL IVP (16:31)
[2025-06-03 16:40] LABS: Glucose Negative (Negative)
[2025-06-03] MEDS: MORPHine IR 15 MG TAB PO (17:35)
--- NOTE | 2025-06-03 19:21 | HPE_ITS ---
Date of service: 06/03/25 Time of Service: 19:21 Assessment and Plan Assessment and plan (1) Abdominal pain: Status: Acute Assessment and plan: Patient does have a history and physical examination consistent with acute acute appendicitis. I will start him on Zosyn. Will reimage in the a.m. Recheck labs in AM. He will be n.p.o. except for ice chips and meds. History of Present Illness History of Present Illness Chief Complaint: RLQ pain Narrative: This is a 24-year-old gentleman with no significant past medical history who presents with a 36 history of nausea vomiting and then the right lower quadrant pain. Patient states that when not on medication the pain is 10 out of 10. While he was in the ED a CT scan was done which did not indicate acute appendicitis but the appendix was not well-visualized the patient's lab work was essentially benign. Considering his continued pain and no clear diagnosis we are admitting the right for evaluation. Consider reimaging in the a.m. per the ED physician, Dr. Hines is aware. Patient does not have any drug allergies has never had general anesthesia. Last meal was this morning. Review of Systems All systems reviewed & are unremarkable except as noted in HPI and below PFSH All Active Problems (Updated 06/03/25 @ 19:25 by Yuliya Mei MD) Abdominal pain of unknown etiology (Acute) Abdominal pain (Acute) Abscess (Acute) Cellulitis (Acute) Medical History (Updated 06/03/25 @ 19:25 by Yuliya Mei MD) No significant past medical history Surgical History History of ear surgery Social History Smoking/Tobacco Use Status: Never Smoking risk assessment performed?: Yes Alcohol Intake: never Drug use: Never Substance use type: marijuana Do you feel safe at home: Yes Do you feel safe in your relationship?: Yes Meds Allergies and Home Medications Allergies Allergy/AdvReac Type Severity Reaction Status Date / Time No Known Allergies Allergy Unverified 06/03/25 13:42 Home Medications ?Medication ?Instructions ?Recorded ?Confirmed ?Type cephalexin 500 mg capsule (Keflex) 500 mg PO QID #39 c aps 08/07/19 06/03/25 Rx valacyclovir 500 mg tablet 500 mg PO DAILY 08/07/19 History Exam Narrative Exam Narrative: HEENT normocephalic atraumatic Neck no lymphadenopathy no JVD no thyromegaly Cardiovascular regular rate and rhythm no rubs or gallops Lungs clear to auscultation with good air exchange Abdomen tenderness to palpation of left lower and right lower quadrants. Psoas and Obturator signs are present Results Labs 06/03/25 14:10 06/03/25 14:10 Labs: Laboratory Results - last 24 hr 06/03/25 06/03/25 14:10 16:29 WBC 7.73 RBC 4.58 Hgb 13.2 L Hct 39.8 L MCV 87 MCH 28.8 MCHC 33.2 RDW 12.5 Plt Count 298 MPV 9.7 Immature Gran % 0.3 Neutrophils % 67.3 Lymphocytes % 24.2 Monocytes % 7.1 Eosinophils % 0.6 Basophils % 0.5 Nucleated RBC % 0.0 Absolute Neutrophils 5.20 Absolute Lymphocytes 1.87 Absolute Monocytes 0.55 Absolute Eosinophils 0.05 Absolute Basophils 0.04 Sodium 142 Potassium 4.1 Chloride 108 H Carbon Dioxide 24.2 Anion Gap 9.8 BUN 16 Creatinine 1.01 Est GFR (CKD-EPI 2020) 89.40 Glucose 79 Calcium 9.6 Magnesium 2.0 Total Bilirubin 0.60 AST 20 ALT 13 Alkaline Phosphatase 83 Total Protein 7.7 Albumin 4.8 Lipase 29 Urine Color Yellow Urine Clarity Clear Urine pH 8.5 H Ur Specific [place] 1.015 Urine Protein Trace Urine Ketones 15 H Urine Blood Negative Urine Nitrite Negative Urine Bilirubin Negative Urine Urobilinogen 1.0 H Ur Leukocyte Esterase Negative Urine Glucose Negative Last Vital Signs Temp 37.0 C 06/03/25 14:04 Pulse 78 06/03/25 14:04 Resp 16 06/03/25 14:04 BP 107/67 06/03/25 14:04 Pulse Ox 96 06/03/25 14:04 VTE Prohylaxis Risk Level: Low Risk Contraindications: None Prophylaxis: Patient ambulatory Time Spent Time spent with Patient: 40-54 minutes Time was spent: preparing to see the patient(eg.review tests), obtaining and/or reviewing separately otained hiistory, ordering medications,tests, procedures, referring, communicating with other health behavioral health care coordinator, indepentently interpreting results, counseling the patient and care coordination
--- NOTE | 2025-06-03 20:20 | W.PC.ACHO ---
Registration Status: REG ER Primary Language: Preferred Language: [place] ED Information & Data Chief Complaint Abd Prob 06/03/25 14:00 Triage Note patient presented with right 06/03/25 13:36 lower quad pain which started 20mins ago while at work. State the pain feels as if someone is using a knife into his abdomen. Started having nausea yesterday Medical / Surgical History (Last Reviewed 05/28/19 @ 10:27 by Leslie Orozco DO) No significant past medical history (Last Reviewed 05/28/19 @ 10:27 by Leslie Orozco DO) History of ear surgery Most Recent Vital Signs Temperature 37.0 C 06/03/25 14:04 Temperature Source Oral 06/03/25 14:04 Pulse 68 06/03/25 18:35 Respiratory Rate 16 06/03/25 19:57 Blood Pressure 119/76 06/03/25 18:35 Pulse Oximetry 99 06/03/25 19:57 Oxygen Delivery Method Room Air 06/03/25 14:04 Oxygen Flow Rate 0 06/03/25 14:04 Pain Level 7 06/03/25 19:57 Allergies No Known Allergies Allergy (Unverified 06/03/25 13:42) Active Medications Generic Name Dose Route Start Last Admin Trade Name Freq PRN Reason Stop Dose Admin Iohexol 100 ml 06/03/25 14:15 06/03/25 14:09 Omnipaque 350 Mg/Ml 100 Ml Btl IJ 07/03/25 23:59 75 ml DIRECTED JYOTI Administration Ondansetron HCl 4 mg 06/03/25 19:16 06/03/25 20:05 Ondansetron 4 Mg/2 Ml Vial IVP 4 mg Q60 MIN PRN PRN Administration Sodium Chloride 0 ml 06/03/25 14:07 06/03/25 14:12 Normal Saline Flush 10 Ml Syr IVP 10 ml PRN PRN Administration Sodium Chloride 50 ml 06/03/25 14:15 06/03/25 14:11 Normal Saline - Diluent 50 Ml Vial IJ 50 ml DIRECTED JYOTI Administration IV IV Catheter Type [Right Saline Lock Forearm] IV Catheter Gauge [Right 18 Forearm] Diet Orders Category Date Time Status Nothing Per Oral [DIET] Nutrition 06/03/25 19:17 Active Diagnostics 06/03/25 06/03/25 Range/Units 16:29 14:10 WBC 7.73 (4.4-10.8) 10^3/uL RBC 4.58 (4.36-5.78) 10^6/uL Hgb 13.2 L (13.5-17.5) g/dL Hct 39.8 L (40.0-50.0) % MCV 87 (80-95) fL MCH 28.8 (27.0-33.0) pg MCHC 33.2 (32.0-36.0) % RDW 12.5 (11.8-14.1) % Plt Count 298 (130-400) 10^3/uL MPV 9.7 (8.0-11.0) fL Immature Gran % 0.3 % Neutrophils % 67.3 % Lymphocytes % 24.2 % Monocytes % 7.1 % Eosinophils % 0.6 % Basophils % 0.5 % Nucleated RBC % 0.0 (0.0-0.3) % Absolute Neutrophils 5.20 (1.2-6.7) 10^3/uL Absolute Lymphocytes 1.87 (1.2-3.4) 10^3/uL Absolute Monocytes 0.55 (0.1-0.8) 10^3/uL Absolute Eosinophils 0.05 (0.0-0.7) 10^3/uL Absolute Basophils 0.04 (0.0-0.2) 10^3/uL Sodium 142 (136-145) mmol/L Potassium 4.1 (3.5-5.1) mmol/L Chloride 108 H (98-107) mmol/L Carbon Dioxide 24.2 (20.0-31.0) mmol/L Anion Gap 9.8 (3-11) mmol/L BUN 16 (9-23) mg/dL Creatinine 1.01 (0.73-1.18) mg/dL Est GFR (CKD-EPI 2020) 89.40 (mL/min/1.73m2) Glucose 79 (74-106) mg/dL Calcium 9.6 (8.3-10.6) mg/dL Magnesium 2.0 (1.6-2.6) mg/dL Total Bilirubin 0.60 (0.2-1.2) mg/dL AST 20 (<34) U/L ALT 13 (10-49) U/L Alkaline Phosphatase 83 (46-116) U/L Total Protein 7.7 (5.7-8.2) g/dL Albumin 4.8 (3.2-5.0) g/dL Lipase 29 (<53) U/L Urine Color Yellow (Yellow) Urine Clarity Clear (Clear) Urine pH 8.5 H (5-8) Ur Specific [place] 1.015 (1.005-1.025) Urine Protein Trace (Neg-Trace) mg/dL Urine Ketones 15 H (Negative) mg/dL Urine Blood Negative (Negative) Urine Nitrite Negative (Negative) Urine Bilirubin Negative (Negative) Urine Urobilinogen 1.0 H (Up to 0.2) mg/dL Ur Leukocyte Esterase Negative (Negative) Urine Glucose Negative (Negative) mg/dL Intake and Output - 24 Hour Total 06/03/25 13:31 thru 06/03/25 15:25 Intake Total 1000 Balance 1000 Weight 68.039 kg Intake: IV 1000 Falls Risk Assessment History of Falls No History 06/03/25 13:59 Contributing Factors No Factors 06/03/25 13:59 Ambulatory Aids Independent 06/03/25 13:59 Tubes/Lines None 06/03/25 13:59 Gait Evaluation No gait disturbance 06/03/25 13:59 Cognition No cognitive impairment 06/03/25 13:59 Fall Total Score 0 06/03/25 13:59 Level of Risk Standard/Low Risk 06/03/25 13:59 Problems (Last Reviewed 05/28/19 @ 10:27 by Leslie Orozco DO) Abdominal pain (Acute) Attestation Statement: By documenting the first initial, last name, and credentials of the reporting nurse below, both parties acknowledge that all relevant information regarding the patient handoff has been communicated, and that all questions have been addressed to ensure continuity and safety of care. Additional Patient Information/Comments: Pt admit through the ED to Med/surg rm 214, for appendicitis. day 2 of severe RLQ pain, N/V. and some diarrhea. Requesting pain meds, uncomfortable. Scan shows inflammation, early stages. Abx Tx, reimage and recheck labs in am. Pt is NPO att. Report Received From: Called @ 2011, spoke to LENNOX De La Fuente.
[2025-06-03] MEDS: HYDROmorphone 2 MG/ML SYR IVP (20:22)
[2025-06-03] MEDS: Normal Saline 1,000 ML 125 ML IV (21:17)
[2025-06-03] MEDS: Mylanta Suspension 30 ML CUP PO (21:17)
[2025-06-03] MEDS: PIPERACILLIN/TAZO 3.375 GM in Normal Saline 50 ML IVPB (21:43)
[2025-06-03] MEDS: Metoclopramide 10 MG/2 ML VIAL IVP (22:39)
--- NOTE | 2025-06-04 | DI.CT_ITS ---
Exam(s) CT ABDOMEN PELVIS W EXAM: CT ABDOMEN PELVIS W CLINICAL HISTORY: ABdominal pain. TECHNIQUE: Imaging Protocol: Axial computed tomography images with coronal and sagittal reformatted images were created and reviewed CONTRAST MATERIAL: Intravenous: Omnipaque-350 75cc Oral: Yes. Oral contrast was also administered for bowel opacification. COMPARISON: CT CT ABDOMEN PELVIS W from 06/03/2025 FINDINGS: VISUALIZED LUNG BASES: No nodules nor pleural effusions evident. No infiltrates. ABDOMEN: LIVER: There are no focal hepatic lesions evident. No dilated intrahepatic ducts. GALLBLADDER/BILIARY: Hyperdense bile evident in the gallbladder lumen. No obvious calculi nor gallbladder wall edema.. CBD is not dilated. PANCREAS: No evidence of pancreatic mass nor dilatation of the pancreatic duct. SPLEEN: Spleen is not enlarged. No obvious intrasplenic lesions. Splenic and portal veins are patent. ADRENALS: There are no significant adrenal masses. KIDNEYS:No cysts evident. No solid renal masses. No calculi nor hydronephrosis.. ABDOMINAL AORTA: Abdominal aorta is not enlarged. LYMPH NODES:There is no retroperitoneal nor paraaortic adenopathy. ABDOMINAL WALL: No evidence of significant anterior abdominal wall nor inguinal hernia. GI: There is no evidence of bowel obstruction, free air, nor abscess. PELVIS: There is small amount of free fluid in the dependent aspect of the pelvis in this male patient GI: The appendix is not identified as a separate structure. There is no obvious evidence of acute appendicitis.No evidence of sigmoid diverticulitis. LYMPH NODES: There is no intrapelvic nor inguinal adenopathy. REPRODUCTIVE: Prostate size age-appropriate URINARY BLADDER: Partially collapsed. No obvious abnormal findings. OSSEOUS: No fractures and no significant osseous lesions. IMPRESSION: 1. There is small amount of free fluid in the dependent aspect of the pelvis in this 24-year-old male patient. This is never a normal finding in a male patient. However, there is no evidence obvious acute intra-abdominal pathology on this study. 2. The appendix is difficult to identify on this study. However, there is no obvious swollen appendix evident. Report called by myself to floor 06/04/2025 at 4:10 p.m. RADIATION DOSE DELIVERED: 239.25mGy.cm Total DLP DATA REPOSITORY: All CT scans at this facility are submitted to the National Radiology Data Registry (NRDR) Dose Index Registry (DIR) with the [employer] (ACR). RADIATION OPTIMIZATION: All CT scans at this facility use at least one of these dose optimization techniques: automated exposure control; mA and/or kV adjustment per patient size (includes targeted exams where dose is matched to clinical indication); or iterative reconstruction.
[2025-06-04] MEDS: Acetaminophen 325 MG TAB PO ×3 (02:13→11:21)
[2025-06-04] MEDS: Mylanta Suspension 30 ML CUP PO ×2 (02:13→20:22)
[2025-06-04] MEDS: PIPERACILLIN/TAZO 3.375 GM in Normal Saline 50 ML IVPB ×4 (03:47→22:22)
[2025-06-04] MEDS: HYDROmorphone 2 MG/ML SYR IVP ×3 (03:48→12:06)
[2025-06-04] MEDS: Normal Saline Flush 10 ML SYR IVP ×6 (03:49→22:23)
[2025-06-04] MEDS: Ondansetron 4 MG/2 ML VIAL IVP ×2 (05:51→13:16)
[2025-06-04 06:21] LABS: ALT 11 U/L (10-49); AST 17 U/L (<34); Albumin 4.0 g/dL (3.2-5.0); Alkaline Phosphatase 75 U/L (46-116); Anion Gap 8.9 mmol/L (3-11); BUN 16 mg/dL (9-23); Bilirubin, Total 0.70 mg/dL (0.2-1.2); CO2 26.1 mmol/L (20.0-31.0); Calcium 9.0 mg/dL (8.3-10.6); Chloride 109 mmol/L (98-107); Glucose 93 mg/dL (74-106); Potassium 4.5 mmol/L (3.5-5.1); Sodium 144 mmol/L (136-145); Total Protein 6.6 g/dL (5.7-8.2)
[2025-06-04 06:52] LABS: Abs Immature Grans 0.03 10^3/uL (0.0-0.06); HCT 37.8 % (40.0-50.0); HGB 12.6 g/dL (13.5-17.5); Immature Grans % 0.4 %; MCH 29.4 pg (27.0-33.0); MCHC 33.3 % (32.0-36.0); MCV 88 fL (80-95); MPV 10.5 fL (8.0-11.0); Platelet Count 256 10^3/uL (130-400); RBC 4.28 10^6/uL (4.36-5.78); RDW 12.6 % (11.8-14.1); RDW-SD 40.9 fL; WBC 6.97 10^3/uL (4.4-10.8)
[2025-06-04 07:43] VITALS: BP 104/65; PULSE 54; RESP 16; TEMP 36.8; O2SAT 97
[2025-06-04] MEDS: Normal Saline 1,000 ML 125 ML IV ×2 (08:46→20:25)
--- NOTE | 2025-06-04 09:00 | INITIAL_ITS ---
Date of service: 06/04/25 Time of Service: 09:00 Care Management Initial Assmt Initial Assessment Reason for Hospitalization: Abdominal Pain Functional Status/Living Situation Patient Presentation: Mannie was awake and lying in bed when CM met with him. His mother, Errol, was seated at the bedside, both were appropriate and easily engaged in conversation. Mannie is admitted for abdominal pain and is scheduled for a repeat CT scan later today. Mannie is employed at [employer], he drives and is independent at baseline. He will require a return to work letter prior to discharge. He does not have health insurance or a PCP at this time. CM provided him with a list of local PCP's and with his consent sent a referral to [facility] asking for assistance with medicaid, if eligible. CM also provided him with a Patient assistance packet, but encouraged him to talk with a CHW at [facility] prior to filling it out. [place] of Residence: [facility] [place] [facility] Resides with: Alone Significant Other/Family: Local Natural Supports: Mother Errol Employment Status: Employed ([employer]) Instrumental Activities of Daily Living (ADLs): Independent Medications Medication Management: No Issues/Barriers identified Advance Directives Advance Directives: Do you have an Advance Directive: N , 13:31 AD On File at [facility]: N 06/03/25, 13:31 Date Asked 06/03/25 06/03/25, 13:33 AD Date Reviewed COLST On File at [facility] COLST Date Scanned Code Status Resuscitation Status Full Code Insurance Coverage/Financial Issues Insurance: Self pay Financial Issues: Referral to [facility] Care Team Visit Care Team Role Provider Type Henna Ocampo APRN MD [facility] STAFF PHYSICIAN Unknown Unknown Primary Care Provider STAFF PHYSICIAN Yuliya Mei MD Emergency Provider [facility] STAFF PHYSICIAN Kameron Carrillo MD Admit Provider [facility] STAFF PHYSICIAN Attending Provider Discharge Potential Discharge Needs: PCP F/U Appt Anticipated Barriers to Discharge: None Identified Patient/Family Education Needs: Review discharge instructions, discuss Ask Me Three Transportation: Private vehicle Plan: Mannie is currently NPO and waiting to have a second CT scan. Surgical is consulted. Anticipate, patient will discharge home once medically ready and follow up with community providers and continue per his discharge plan of care. No new services are planned at this time. Social Determinants of Health Screening Will the Patient Participate in the Screening?: Declined to provide PFSH All Active Problems (Updated 06/04/25 @ 12:24 by Henna Ocampo APRN) Appendicitis (Acute) Abdominal pain of unknown etiology (Acute) Abdominal pain (Acute) Abscess (Acute) Cellulitis (Acute) Medical History (Updated 06/04/25 @ 12:24 by Henna Ocampo APRN) No significant past medical history Surgical History History of ear surgery Social History Smoking/Tobacco Use Status: Never Smoking risk assessment performed?: Yes Alcohol Intake: never Drug use: Never Substance use type: marijuana Housing: house Do you feel safe at home: Yes Do you feel safe in your relationship?: Yes
[2025-06-04] MEDS: Metoclopramide 10 MG/2 ML VIAL IVP ×2 (09:16→14:55)
--- NOTE | 2025-06-04 09:49 | PGE_ITS ---
Date of Service Date of service: 06/04/25 Time of Service: 12:17 Assessment and Plan Assessment and plan (1) Abdominal pain: Status: Acute Assessment and plan: The patient presented with a history and physical examination consistent with acute acute appendicitis. Initial CT of the abdomen and pelvis could not visualize the appendix, subsequent report mentioned fluid-filled upper normal diameter small bowel loops in the pelvis which could be due to reactive inflammation No report of diffuse abdominal tenderness as pain is localized to the right lower abdominal quadrant Also me mentioned heavy use of THC - and DDx of hypercarabinoid emesis discussed but unlikely as per imaging and symptomatology No leukocytosis Ongoing Zosyn IV acetamninophen and PRN opioids for pain management. Labs in AM CT ABD pelvis w IV and oral contrast pending (2) Appendicitis: Status: Acute Assessment and plan: As above Discussed with Dr. Nazario Subjective Subjective Patient reports: still having pain, flatus, nausea and vomiting; denies tolerating liquids well, tolerating a regular diet, voiding w/o difficulty, no bowel movement, diarrhea, shortness of breath or fever Exam Narrative Exam Narrative: 24-year-old male looking of stated age, without acute distress, neurologically intact, clear lungs unlabored breathing, S1-S2 regular PPP x 4, abdomen is nondistended soft tender to right lower quadrant with rebound tenderness, no CVA tenderness, moves all 4 extremities Objective Last Vital Signs Temp 36.8 C 06/04/25 07:43 Pulse 54 L 06/04/25 07:43 Resp 16 06/04/25 07:43 BP 104/65 06/04/25 07:43 Pulse Ox 97 06/04/25 07:43 Laboratory Results - last 24 hr 06/03/25 06/03/25 06/04/25 14:10 16:29 05:45 WBC 7.73 6.97 RBC 4.58 4.28 L Hgb 13.2 L 12.6 L Hct 39.8 L 37.8 L MCV 87 88 MCH 28.8 29.4 MCHC 33.2 33.3 RDW 12.5 12.6 Plt Count 298 256 MPV 9.7 10.5 Immature Gran % 0.3 0.4 Neutrophils % 67.3 69.5 Lymphocytes % 24.2 20.1 Monocytes % 7.1 8.5 Eosinophils % 0.6 0.9 Basophils % 0.5 0.6 Nucleated RBC % 0.0 0.0 Absolute Neutrophils 5.20 4.85 Absolute Lymphocytes 1.87 1.40 Absolute Monocytes 0.55 0.59 Absolute Eosinophils 0.05 0.06 Absolute Basophils 0.04 0.04 Sodium 142 144 Potassium 4.1 4.5 Chloride 108 H 109 H Carbon Dioxide 24.2 26.1 Anion Gap 9.8 8.9 BUN 16 16 Creatinine 1.01 1.10 Est GFR (CKD-EPI 2020) 89.40 81.01 Glucose 79 93 Calcium 9.6 9.0 Magnesium 2.0 Total Bilirubin 0.60 0.70 AST 20 17 ALT 13 11 Alkaline Phosphatase 83 75 Total Protein 7.7 6.6 Albumin 4.8 4.0 Lipase 29 Urine Color Yellow Urine Clarity Clear Urine pH 8.5 H Ur Specific [place] 1.015 Urine Protein Trace Urine Ketones 15 H Urine Blood Negative Urine Nitrite Negative Urine Bilirubin Negative Urine Urobilinogen 1.0 H Ur Leukocyte Esterase Negative Urine Glucose Negative VTE Prohylaxis Risk Level: Low Risk Contraindications: None Prophylaxis: Patient ambulatory Time Spent with Patient Time Spent with Patient: >50 minutes Time was spent: preparing to see the patient(eg.review tests), obtaining and/or reviewing separately otained hiistory, ordering medications,tests, procedures, referring, communicating with other health healthcare administrative assistant, indepentently interpreting results, counseling the patient, care coordination and other
[2025-06-04 10:07] LABS: Lab Add On Test DONE
[2025-06-04 10:22] LABS: C-Reactive Protein < 0.50 mg/dL (<=0.50)
[2025-06-04 11:15] VITALS: BP 111/80; PULSE 64; RESP 16; TEMP 36.8; O2SAT 98
--- NOTE | 2025-06-04 11:39 | NUR.NOTE ---
Nursing Note: Provider reiterated to patient that he is NPO. Mother in room in patient chair near closet. This RN immediately scanned pt area to ensure no stray food/drink in room. Half full beverage on pt table closest to window/computer. RN disposed of drink in trash to ensure pt did not consume. Mother immediately yelled at this RN That's mine! You should communicate before you do something like that! RN explained pt was NPO, offered to get another cup for mother, mother cut off RN, saying I know he's NPO, I'm a nurse, you need to communicate before you do something like that!That's not ok! You need to communicate! Mother continued to berate this RN as I left this room to avoid further confrontation. [employer], charge nurse, MS Beauty Director notified of incident.
--- NOTE | 2025-06-04 12:00 | PHA.REVIEW2 ---
Pharmacy Admission Review Admission Clinical Review Admission Pharmacy Review: (Updated 06/03/25 @ 19:25 by Yuliya Mei MD) Abdominal pain (Acute) No Known Allergies Allergy (Unverified 06/03/25 13:42) Resuscitation Status Full Code Height 5 ft 7 in Weight 58.876 kg Pharmacy Admission Review Renal Dosing Renal Dosing: BUN 16 mg/dL (9-23) 06/04/25 05:45 Creatinine 1.10 mg/dL (0.73-1.18) 06/04/25 05:45 Medications needing adjustments: Reviewed (SCR=1.1; CRCL=85; NO ADJUSTMENTS NEEDED. ) Anticoagulation Anticoagulation: Hgb 12.6 g/dL (13.5-17.5) L 06/04/25 05:45 Hct 37.8 % (40.0-50.0) L 06/04/25 05:45 Plt Count 256 10^3/uL (130-400) 06/04/25 05:45 Creatinine 1.10 mg/dL (0.73-1.18) 06/04/25 05:45 DVT Prophylaxis: Reviewed (NONE ORDERED. WILL CHECK WITH PROVIDER IF PT IS AMBULATORY) Opiate Usage Evaluate Pain Scale/Pains Meds: Reviewed Scheduled Bowel Reg ordered if on Opiates?: Yes Relevant Labs Relevant Labs: Sodium 144 mmol/L (136-145) 06/04/25 05:45 Potassium 4.5 mmol/L (3.5-5.1) 06/04/25 05:45 Chloride 109 mmol/L (98-107) H 06/04/25 05:45 Magnesium 2.0 mg/dL (1.6-2.6) 06/03/25 14:10 C-Reactive Protein < 0.50 mg/dL (<=0.50) 06/04/25 05:45 Electrolytes, C-Reactive P, ESR: Reviewed (NO INTERVENTION AT THIS TIME) DM Control DM Control: Reviewed Insulin Dosing, Diabetic Medication: AM GLUCOSE NORMAL; NO HISTORY OF DM Cardiac Review BP, HR, EF%: Reviewed (BP/HR WITHIN NORMAL LIMITS; NO MEDS AT HOME) QTc Review QTc: N/A IV to PO Switch IV Medications: Reviewed (PT NPO) Home Meds Home Med List reviewed: N/A (NO HOME MEDS) Current Meds Current Medication Order Review: Reviewed Pharmacy Antibiotic Review Relevant Labs: Relevant Labs 06/04/25 05:45 C-Reactive Protein < 0.50 Pharmacy Antibiotic Activity: Reviewed, no change (ON EMPIRIC ZOSYN (STARTED 06/03 AT 2200) FOR POSSIBLE APPENDICITIS; F/U WITH PLAN IN 48 HOURS)
[2025-06-04] MEDS: Breeza Beverage 473 ML BTL PO ×2 (12:38→12:39)
[2025-06-04] MEDS: Omnipaque 350 MG/ML 50 ML BTL PO (12:39)
[2025-06-04 14:17] VITALS: BP 113/62; PULSE 61; RESP 16; TEMP 36.6; O2SAT 98
[2025-06-04] MEDS: Omnipaque 350 MG/ML 100 ML BTL IJ (15:36)
[2025-06-04] MEDS: Normal Saline - Diluent 50 ML VIAL IJ (15:36)
[2025-06-04 15:38] LABS: Cannabinoids THC Positive (Negative)
[2025-06-04] MEDS: MORPHine 2 MG/ML SYR IVP ×2 (15:45→20:23)
[2025-06-04] MEDS: Ketorolac 15 MG/ML VIAL IVP (17:13)
[2025-06-04] MEDS: Pantoprazole 40 MG VIAL IVP (17:13)
[2025-06-04] MEDS: ACETAMINOPHEN 1,000 MG/100 ML BAG 400 MG IVPB ×2 (17:14→23:57)
[2025-06-04 19:23] VITALS: BP 122/71; PULSE 63; RESP 18; TEMP 36.7; O2SAT 98
[2025-06-04] MEDS: Docusate Sodium 100 MG CAP PO (20:23)
[2025-06-04] MEDS: Polyethylene Glycol 3350 17 GM PACKET PO (20:23)
[2025-06-04 21:35] LABS: COVID-19 PCR Negative (Negative); RSV PCR Negative (Negative)
[2025-06-04 22:58] LABS: Fentanyl Scr w/Rflx to Conf, U Negative (Negative)
[2025-06-04 23:39] VITALS: BP 129/73; PULSE 67; RESP 18; TEMP 36.7; O2SAT 98
[2025-06-05 03:38] VITALS: BP 132/72; PULSE 65; RESP 18; TEMP 36.7; O2SAT 98
[2025-06-05] MEDS: PIPERACILLIN/TAZO 3.375 GM in Normal Saline 50 ML IVPB ×2 (03:53→10:14)
[2025-06-05] MEDS: Normal Saline Flush 10 ML SYR IVP ×3 (03:54→08:09)
[2025-06-05] MEDS: Ketorolac 15 MG/ML VIAL IVP ×2 (03:54→10:14)
[2025-06-05] MEDS: Normal Saline 1,000 ML 125 ML IV (04:02)
[2025-06-05 06:22] LABS: Abs Immature Grans 0.00 10^3/uL (0.0-0.06); HCT 35.6 % (40.0-50.0); HGB 11.9 g/dL (13.5-17.5); Immature Grans % 0.0 %; MCH 29.5 pg (27.0-33.0); MCHC 33.4 % (32.0-36.0); MCV 88 fL (80-95); MPV 10.5 fL (8.0-11.0); Platelet Count 220 10^3/uL (130-400); RBC 4.03 10^6/uL (4.36-5.78); RDW 12.5 % (11.8-14.1); RDW-SD 40.6 fL; WBC 6.23 10^3/uL (4.4-10.8)
[2025-06-05 06:48] LABS: ALT 10 U/L (10-49); AST 18 U/L (<34); Albumin 3.7 g/dL (3.2-5.0); Alkaline Phosphatase 64 U/L (46-116); Anion Gap 8.8 mmol/L (3-11); BUN 10 mg/dL (9-23); Bilirubin, Total 0.70 mg/dL (0.2-1.2); CO2 25.2 mmol/L (20.0-31.0); Calcium 8.2 mg/dL (8.3-10.6); Chloride 110 mmol/L (98-107); Glucose 79 mg/dL (74-106); Potassium 3.6 mmol/L (3.5-5.1); Sodium 144 mmol/L (136-145); Total Protein 6.0 g/dL (5.7-8.2)
--- NOTE | 2025-06-05 06:51 | NUR.NOTE ---
Nursing Note: Pt quite upset at beginning of shift because he felt he wasn't being communicated to the plan of care. Asked provider to come to bed side to go over CT. Provider Dr Carrillo unable to come to bedside, told me what to say for a general synopsis of CT results and plan going forward. Pt also upset that he has court at 8am on 06/05/25 and he will be missing it. Has asked multiple people for a release note from the provider stating he is in the hospital, no one has circled back with the release. I got a release, had Dr. Carrillo sign it, made a copy and placed in chart, provided the patient with the original. Advanced diet to clears as not nauseous or vomiting. Tolerated clear liquid diet. Pt is now content.
[2025-06-05] MEDS: Pantoprazole 40 MG VIAL IVP (08:09)
[2025-06-05] MEDS: MORPHine 2 MG/ML SYR IVP (08:09)
[2025-06-05] MEDS: Docusate Sodium 100 MG CAP PO (08:10)
[2025-06-05] MEDS: Polyethylene Glycol 3350 17 GM PACKET PO (08:23)
[2025-06-05] MEDS: Famotidine 20 MG TAB PO (10:14)
--- NOTE | 2025-06-05 11:51 | W.PM.DS.N ---
Date of service: 06/05/25 Time of Service: 11:51 DS: Diagnosis Discharge Diagnosis (1) Abdominal pain: Status: Acute (2) Appendicitis: Status: Acute Discharge Plan Disposition Patient Disposition: Home Condition: Improving Discharge Details Reason For Visit: Abdominal Pain Admit Date/Time: 06/03/25 19:16 Admit Provider: Kameron Carrillo Attending Provider: Kameron Carrillo Primary Care Provider: Unknown,Unknown Hospital Course Hospital Course: This 24 yo male with a past medical history recent dental cavity on amoxicillin X1 dose, heavy TCH use presented to the ED on 06/03/2025 for evaluation of RLQ abdominal pain, nausea and vomiting. Work-up in the ED was suspicious for appendicitis with initial CT read unable to clearly identify appendix but w/o obvious secondary signs of acute appendicitis but fluid filled bowel loops seen in the pelvis. Surgery consultation completed with recommendation to discharge home oral pain medicines with follow-up in 1-2 days. The patient had ongoing abdominal pain, nausea and vomiting and was admitted to the medical surgical floor for further evaluation and management by the hospitalist team. Treatment with was initiated with piperacillin tazobatam for potential intra-abdominal infection pending repeat imaging and pain management. The repeat CT showed no appendicitis but a small amount of fluid in the pelvis, and appendix was visible as per discussion with radiology. The patient has cliinically improved, abdomen in non-tender, oral intake tolerated. The patient will be discharged home with a follow-up with PCP within 7 days of discharge. Referral to surgery to be considered for small amount of dependent pelvic fluid collection that will most likely be reabsorbed. Short course of antibiotics to complete a total of 4 days of therapy. Discussed with Dr. Nazario Recommendations for Follow Up Recommended tests to be ordered by follow up provider: Needs repeat abdomen and pelvis imaging outpatient in 4-6 weeks as per PCP, consider referral to Home Meds and New Rx's Prescriptions: New famotidine 20 mg Tablet 20 mg PO BID Qty: 20 0RF Bio-K plus 50 billion cell capsule,delayed release(DR/EC) 1 cap PO DAILY Qty: 5 0RF acetaminophen 500 mg capsule 1,000 mg PO Q6H PRNQty: 30 0RF ibuprofen 800 mg tablet 800 mg PO Q8H PRNQty: 12 0RF amoxicillin-pot clavulanate 875-125 mg tablet 1 tab PO BID Qty: 4 0RF metoclopramide HCl [Reglan] 5 mg tablet 5 mg PO TID PRN PRNQty: 10 0RF Rx Instructions: administer 30 minutes before meals- for nausea /vomiting Discontinued valacyclovir 500 mg Tablet 500 mg PO DAILY cephalexin [Keflex] 500 mg capsule 500 mg PO QID Qty: 39 0RF Discharge Instructions Stand Alone Forms: Portal Information Referrals: Unknown,Unknown [Primary Care Provider, Unknown] Referral Note: Follow-up with primary care within 7 days of discharge Activity:: Activity as Tolerated Equipment/Supplies:: No Equipment Needed Diet:: As Tolerated Discharge Orders Discharge Orders: Discharge Order (Routine); Ordered 06/05/25 Ordered By: Henna Ocampo DS: Summary Time Spent with Patient providing and/or coordinating discharge services: Greater than 30 minutes Status at Discharge Functional status at discharge: independent ambulation Overall status at discharge: patient is progressing back to baseline Mental Status: mental status grossly normal Speech and Movement: speech and movement normal Mood: congruent mood Affect: normal affect Exam Narrative Exam Narrative: 24-year-old male looking of stated age, without acute distress, neurologically intact, clear lungs unlabored breathing, S1-S2 regular PPP x 4, abdomen is nondistended soft non-tender tmoves all 4 extremities Psych Mental Status: mental status grossly normal Speech and Movement: speech and movement normal Mood: congruent mood Affect: normal affect DS: Data Vitals/I&O Vitals and I&O: Vital Signs Temperature 36.7 C 06/05/25 03:38 Temperature Source Temporal Artery Scan 06/05/25 03:38 Pulse 65 06/05/25 03:38 Pulse Rhythm Regular 06/03/25 20:38 Respiratory Rate 18 06/05/25 03:38 Respiratory Effort Normal 06/03/25 20:38 Respiratory Depth Shallow 06/03/25 20:38 Respiratory Pattern Normal 06/03/25 20:38 Blood Pressure 132/72 06/05/25 03:38 Blood Pressure Mean 92 06/05/25 03:38 Pulse Oximetry 98 06/05/25 03:38 Oxygen Delivery Method Room Air 06/05/25 03:38 Oxygen Flow Rate 0 06/05/25 03:38 Pain Level 1 06/05/25 09:09 Comment Pt has pain of 6 and is in bed in the supine position. 06/04/25 23:39 Intake & Output 06/04/25 06/04/25 06/05/25 11:59 23:59 11:59 Intake Total 1050 / 2260 1210 / 2260 1552.083 / 1552.083 Output Total 300 / 555 255 / 555 125 / 125 Balance 750 / 1705 955 / 1705 1427.083 / 1427.083 Weight 58.876 kg 63.004 kg Intake: IV 1050 / 2260 1210 / 2260 1152.083 / 1152.083 Oral 400 / 400 Output: Urine 300 / 425 125 / 425 125 / 125 Emesis 130 / 130 Other: Urine Color Yellow Yellow Light Rhonda Urine Appearance Clear Clear Clear Urine Odor Normal Normal Normal Stool Size Large Moderate Stool Characteristics Liquid Liquid Emesis Description Retching Clear/Water Data Completed and Pending Pending Labs at Discharge: 06/03/25 06/03/25 06/04/25 14:10 16:29 05:45 WBC 7.73 6.97 RBC 4.58 4.28 L Hgb 13.2 L 12.6 L Hct 39.8 L 37.8 L MCV 87 88 MCH 28.8 29.4 MCHC 33.2 33.3 RDW 12.5 12.6 Plt Count 298 256 MPV 9.7 10.5 Immature Gran % 0.3 0.4 Neutrophils % 67.3 69.5 Lymphocytes % 24.2 20.1 Monocytes % 7.1 8.5 Eosinophils % 0.6 0.9 Basophils % 0.5 0.6 Nucleated RBC % 0.0 0.0 Absolute Neutrophils 5.20 4.85 Absolute Lymphocytes 1.87 1.40 Absolute Monocytes 0.55 0.59 Absolute Eosinophils 0.05 0.06 Absolute Basophils 0.04 0.04 Sodium 142 144 Potassium 4.1 4.5 Chloride 108 H 109 H Carbon Dioxide 24.2 26.1 Anion Gap 9.8 8.9 BUN 16 16 Creatinine 1.01 1.10 Est GFR (CKD-EPI 2020) 89.40 81.01 Glucose 79 93 Calcium 9.6 9.0 Magnesium 2.0 Total Bilirubin 0.60 0.70 AST 20 17 ALT 13 11 Alkaline Phosphatase 83 75 C-Reactive Protein < 0.50 Total Protein 7.7 6.6 Albumin 4.8 4.0 Lipase 29 Urine Color Yellow Urine Clarity Clear Urine pH 8.5 H Ur Specific [place] 1.015 Urine Protein Trace Urine Ketones 15 H Urine Blood Negative Urine Nitrite Negative Urine Bilirubin Negative Urine Urobilinogen 1.0 H Ur Leukocyte Esterase Negative Urine Glucose Negative Urine Opiates Screen Urine Methadone Screen Urine Fentanyl Screen Ur Barbiturates Screen Ur Tricyclics Screen Ur Amphetamines Screen U Benzodiazepines Scrn Urine Cocaine Screen U Cannabinoids Screen Urine Xylazine COVID-19 Source SARS-CoV-2 (PCR) Influenza Type A (PCR) Influenza Type B (PCR) RSV (PCR) Add-On Test Request 06/04/25 06/04/25 06/04/25 10:07 15:10 19:23 WBC RBC Hgb Hct MCV MCH MCHC RDW Plt Count MPV Immature Gran % Neutrophils % Lymphocytes % Monocytes % Eosinophils % Basophils % Nucleated RBC % Absolute Neutrophils Absolute Lymphocytes Absolute Monocytes Absolute Eosinophils Absolute Basophils Sodium Potassium Chloride Carbon Dioxide Anion Gap BUN Creatinine Est GFR (CKD-EPI 2020) Glucose Calcium Magnesium Total Bilirubin AST ALT Alkaline Phosphatase C-Reactive Protein Total Protein Albumin Lipase Urine Color Urine Clarity Urine pH Ur Specific [place] Urine Protein Urine Ketones Urine Blood Urine Nitrite Urine Bilirubin Urine Urobilinogen Ur Leukocyte Esterase Urine Glucose Urine Opiates Screen Positive A Urine Methadone Screen Negative Urine Fentanyl Screen Negative Ur Barbiturates Screen Negative Ur Tricyclics Screen Negative Ur Amphetamines Screen Negative U Benzodiazepines Scrn Negative Urine Cocaine Screen Negative U Cannabinoids Screen Positive A Urine Xylazine Pending COVID-19 Source SARS-CoV-2 (PCR) Influenza Type A (PCR) Influenza Type B (PCR) RSV (PCR) Add-On Test Request DONE 06/04/25 06/05/25 20:28 05:30 WBC 6.23 RBC 4.03 L Hgb 11.9 L Hct 35.6 L MCV 88 MCH 29.5 MCHC 33.4 RDW 12.5 Plt Count 220 MPV 10.5 Immature Gran % 0.0 Neutrophils % 53.6 Lymphocytes % 34.2 Monocytes % 8.5 Eosinophils % 3.2 Basophils % 0.5 Nucleated RBC % 0.0 Absolute Neutrophils 3.34 Absolute Lymphocytes 2.13 Absolute Monocytes 0.53 Absolute Eosinophils 0.20 Absolute Basophils 0.03 Sodium 144 Potassium 3.6 Chloride 110 H Carbon Dioxide 25.2 Anion Gap 8.8 BUN 10 Creatinine 1.05 Est GFR (CKD-EPI 2020) 85.47 Glucose 79 Calcium 8.2 L Magnesium Total Bilirubin 0.70 AST 18 ALT 10 Alkaline Phosphatase 64 C-Reactive Protein Total Protein 6.0 Albumin 3.7 Lipase Urine Color Urine Clarity Urine pH Ur Specific [place] Urine Protein Urine Ketones Urine Blood Urine Nitrite Urine Bilirubin Urine Urobilinogen Ur Leukocyte Esterase Urine Glucose Urine Opiates Screen Urine Methadone Screen Urine Fentanyl Screen Ur Barbiturates Screen Ur Tricyclics Screen Ur Amphetamines Screen U Benzodiazepines Scrn Urine Cocaine Screen U Cannabinoids Screen Urine Xylazine COVID-19 Source Nasopharynx SARS-CoV-2 (PCR) Negative Influenza Type A (PCR) Negative Influenza Type B (PCR) Negative RSV (PCR) Negative Add-On Test Request PFSH All Active Problems (Updated 06/05/25 @ 12:21 by Henna Ocampo APRN) Appendicitis (Acute) Abdominal pain of unknown etiology (Acute) Abdominal pain (Acute) Abscess (Acute) Cellulitis (Acute) Medical History (Updated 06/05/25 @ 12:21 by Henna Oacmpo APRN) No significant past medical history Surgical History History of ear surgery Social History Smoking/Tobacco Use Status: Never Smoking risk assessment performed?: Yes Alcohol Intake: never Drug use: Never Substance use type: marijuana Housing: house Do you feel safe at home: Yes Do you feel safe in your relationship?: Yes Time Spent with Patient Time Spent with Patient: >85 minutes Time was spent: preparing to see the patient(eg.review tests), obtaining and/or reviewing separately otained hiistory, ordering medications,tests, procedures, referring, communicating with other health school child care attendant, indepentently interpreting results, counseling the patient, care coordination and other
--- NOTE | 2025-06-05 12:23 | CMDISCH_ITS ---
Date of service: 06/05/25 Time of Service: 12:23 LACE Index Scoring Tool Questions: Length of Stay (in days): 2 Was the patient admitted via the E.D.?: Yes E.D. Visits: 1 Answers: Total Score: 6 Risk of Readmission: Low Risk Care Management Discharge Plan Reason for Hospitalization: Abdominal Pain Discharge Plan: Mannie is discharged home via private vehicle with family. Patient will follow up with community providers (t-doc follow up) and continue p er his discharge plan of care. No new services are indicated at the time of his discharge. CM provided patient with a return to work letter. Patient/Family Education Needs: Review discharge instructions and plan to follow up after discharge, discuss ask me three.
[2025-06-07 10:25] LABS: Xylazine, Confirmation Urine Negative ng/mL (<50)
== END 2025-06-05 13:11 | disposition home or self-care (01) ==
LOC: ER 20:11 → MS 21:26
PROVIDERS: Admitting Provider Hospitalist; Emergency Provider Emergency Medicine; Responsible Provider Nurse Practitioner Acute Care; Visit Provider Hospitalist
DX: R10.31 Right lower quadrant pain (principal); R11.2 Nausea with vomiting, unspecified
CPT/HCPCS: 00123; 36415; 80053; 80307; 80375; 83690; 87637; 96365; 96366; 96375; 96376; 99285; 74177; 81003; 83735; 85025; 86140; 99222; 99233; 99239; G0378; J0131; J1171; J1885; J2270; J2405; J2470; J2543; J2765; J3490; Q9967